=== PATIENT | female | born 1985 | race Caucasian/White ===

== ENCOUNTER 2018-05-18 10:14 | Outpatient (CLI) | payer BC ==
[2018-05-18 12:46] LABS: MICROSCOPIC INDICATED
[2018-05-18] MEDS ORDERED: CYCL25PO20 PO (13:11)
== END 2018-05-18 13:15 | disposition home or self-care (01) ==
LOC: LDOP 10:14
PROVIDERS: ATTEND Obstetrics & Gynecology
DX: O26.892 Other specified pregnancy related conditions, second trimester (principal); M54.42 Lumbago with sciatica, left side; Z3A.24 24 weeks gestation of pregnancy
CPT/HCPCS: 59025; 81001; 87086; 99201; G0463

== ENCOUNTER 2018-08-18 09:19 | Inpatient (IN) | payer BC ==
[~2018-08-18] VITALS: Ht 175.3 cm; Wt 172.0 kg
[~2018-08-18 09:19] MED LIST: CYCL25PO20 PO
[2018-08-18] MEDS ORDERED: MISOPROSTOL 25 MCG TABLET ONE ×3 (10:34→20:09)
[2018-08-18] MEDS ORDERED: LIDOCAINE 1%, 20ML ONE (10:34)
[2018-08-18] MEDS ORDERED: OXYTOCIN 30U/ 0.9% NaCL 500ML 500 ML ONE (10:34)
[2018-08-18] MEDS ORDERED: NEWBORN KIT ONE (10:34)
[2018-08-18] MEDS ORDERED: OXYTOCIN 30U/ 0.9% NaCL 500ML 500 ML IV ONE (10:50)
[2018-08-18] MEDS: D5%-LACTATED RINGERS 1,000 ML IV SCH ×2 (10:50→18:50)
[2018-08-18] MEDS ORDERED: OXYTOCIN 30U/ 0.9% NaCL 500ML 500 ML IV PRN (10:50)
[2018-08-18] MEDS: LACTATED RINGERS 1,000 ML IV SCH ×2 (10:50→18:50)
[2018-08-18] MEDS ORDERED: ONDANSETRON 2MG/ML, 2ML IVPush PRN (11:00)
[2018-08-18] MEDS ORDERED: FENTANYL PF 100 MCG/2ML IVPush PRN (11:00)
[2018-08-18] MEDS ORDERED: CALCIUM CARBONATE 500 MG TAB.CHEW PO PRN (11:00)
[2018-08-18] MEDS ORDERED: TERBUTALINE 1 MG/ML, 1ML IVPush PRN (11:00)
[2018-08-18] MEDS ORDERED: FENTANYL PF 100 MCG/2ML IV PRN (11:00)
[2018-08-18] MEDS ORDERED: MISOPROSTOL 25 MCG TABLET PO PRN ×2 (11:00→18:00)
[2018-08-18 11:18] LABS: BASOPHILS % (AUTO) 0 % (0-1); EOSINOPHILS # (AUTO) 0.04 x10^3/uL (0-0.4); EOSINOPHILS % (AUTO) 0 % (1-7); LYMPHOCYTES # (AUTO) 1.47 x10^3/uL (1-3.4); LYMPHOCYTES % (AUTO) 10 % (22-44); MD NO; MEAN CORPUSCULAR HEMOGLOBIN 28.6 pg (27.0-34.8); MEAN CORPUSCULAR VOLUME 86.5 fL (80-100); MEAN PLATELET VOLUME 8.6 fL (7.4-10.4); MONOCYTES # (AUTO) 0.71 x10^3/uL (0.2-0.8); MONOCYTES % (AUTO) 5 % (2-9); NEUTROPHILS # (AUTO) 12.17 x10^3/uL (1.8-6.8); NEUTROPHILS % (AUTO) 85 % (42-75); PLATELET COUNT 302 x10^3/uL (130-400); RED BLOOD COUNT 4.29 x10^6/uL (3.82-5.3); RED CELL DISTRIBUTION WIDTH 15.8 % (9.6-15.2)
[2018-08-18 19:20] VITALS: BP 139/80
[2018-08-19] MEDS ORDERED: OXYTOCIN 30U/ 0.9% NaCL 500ML 500 ML IV PRN (03:53)
[2018-08-19] MEDS ORDERED: FENTANYL/BUPIV./NS/PF 250 ML EPIDCONT SCH (03:54)
[2018-08-19] MEDS: LACTATED RINGERS 1,000 ML IV SCH ×3 (12:00→16:18)
[2018-08-19] MEDS ORDERED: AMPICILLIN 2 GM in SODIUM CHLORIDE 0.9% 100 ML IVPB STA (12:04)
[2018-08-19] MEDS ORDERED: FENTANYL PF 100 MCG/2ML ONE (12:19)
[2018-08-19] MEDS ORDERED: LIDOCAINE/PF 1.5%-EPI 1:200K, 30ML ONE (13:45)
[2018-08-19] MEDS ORDERED: BUPIVACAINE 0.25% ONE (13:45)
[2018-08-19] MEDS: AMPICILLIN 1 GM in SODIUM CHLORIDE 0.9% 100 ML IVPB SCH ×2 (16:24→19:49)
[2018-08-19] MEDS: D5%-LACTATED RINGERS 1,000 ML IV SCH (17:18)
[2018-08-19] MEDS ORDERED: LACTATED RINGERS 1,000 ML IV SCH (17:48)
[2018-08-19] MEDS ORDERED: FENTANYL PF 500 MCG, BUPIVACAINE/PF 0.5%, 30ML 62.5 ML in SODIUM CHLORIDE 0.9% 177.5 ML EPIDCONT SCH (17:48)
[2018-08-19] MEDS ORDERED: EPHEDRINE 50 MG/ML, 1ML IVPush PRN (18:00)
[2018-08-19] MEDS ORDERED: NALOXONE 0.4 MG/ML, 1ML IVPush PRN (18:00)
[2018-08-19] MEDS ORDERED: LACTATED RINGERS 1,000 ML IVBOLUS PRN (18:00)
[2018-08-19] MEDS ORDERED: OXYTOCIN 30U/ 0.9% NaCL 500ML 500 ML ONE (19:20)
[2018-08-19 19:33] VITALS: BP 136/76
[2018-08-19] MEDS ORDERED: PROPOFOL 10 MG/ML, 20ML ONE ×2 (22:08→22:09)
[2018-08-19] MEDS: OXYTOCIN 30U/ 0.9% NaCL 500ML 500 ML IV SCH (22:58)
[2018-08-19] MEDS ORDERED: ONDANSETRON 2MG/ML, 2ML IV PRN (23:00)
[2018-08-19] MEDS ORDERED: BISACODYL 10 MG SUPP PR PRN (23:00)
[2018-08-19] MEDS ORDERED: GLYCERIN ADULT SUPP PR PRN (23:00)
[2018-08-19] MEDS ORDERED: CEFAZOLIN 2,000 MG in SODIUM CHLORIDE 0.9% 50 ML IV SCH (23:00)
[2018-08-19] MEDS ORDERED: METOCLOPRAMIDE 5 MG/ML, 2ML IV PRN (23:00)
[2018-08-19] MEDS ORDERED: MISOPROSTOL 200 MCG TABLET PR ONE (23:30)
[2018-08-20] MEDS ORDERED: ACETAMINOPHEN 325 MG TABLET PO PRN (00:30)
[2018-08-20 01:00] VITALS: BP 123/82
[2018-08-20] MEDS ORDERED: OXYTOCIN 30U/ 0.9% NaCL 500ML 500 ML IV SCH (01:30)
[2018-08-20] MEDS ORDERED: METHYLERGONOVINE 0.2 MG/ML IM PRN (01:30)
[2018-08-20] MEDS ORDERED: OXYcodone/APAP 5/325MG TABLET PO PRN ×2 (01:30)
[2018-08-20] MEDS ORDERED: MISOPROSTOL 200 MCG TABLET PR PRN (01:30)
[2018-08-20] MEDS ORDERED: RHOGAM FROM BLOOD BANK 1 NOTE EA IM/IV ONE (01:30)
[2018-08-20] MEDS ORDERED: MEASLES,MUMPS&RUBELLA VACC/PF 0.5 ML SQ-VACC PRN (01:30)
[2018-08-20] MEDS ORDERED: DIPH,PERTUSS(ACELL),TET VAC/PF NC IM-VACC PRN (01:30)
[2018-08-20] MEDS ORDERED: CARBOPROST TROMETHAMINE 250 MCG/ML, 1ML IM PRN (01:30)
[2018-08-20] MEDS ORDERED: DOCUSATE 100 MG CAPSULE PO PRN (01:30)
[2018-08-20] MEDS: IBUPROFEN 600 MG TABLET PO PRN ×3 (03:01→21:51)
[2018-08-20 05:05] VITALS: BP 118/79
[2018-08-20 05:20] LABS: MEAN CORPUSCULAR HEMOGLOBIN 28.1 pg (27.0-34.8); MEAN CORPUSCULAR HGB CONC 32.9 g/dL (32.4-35.8); MEAN CORPUSCULAR VOLUME 85.4 fL (80-100); MEAN PLATELET VOLUME 8.4 fL (7.4-10.4); PLATELET COUNT 265 x10^3/uL (130-400); RED BLOOD COUNT 3.92 x10^6/uL (3.82-5.3); RED CELL DISTRIBUTION WIDTH 16.1 % (9.6-15.2)
[2018-08-20 05:44] LABS: BASOPHILS # (AUTO) 0.01 x10^3/uL (0-0.1); BASOPHILS % (AUTO) 0 % (0-1); EOSINOPHILS % (AUTO) 0 % (1-7); LYMPHOCYTES # (AUTO) 1.49 x10^3/uL (1-3.4); LYMPHOCYTES % (AUTO) 8 % (22-44); MD SCAN; MONOCYTES # (AUTO) 1.01 x10^3/uL (0.2-0.8); MONOCYTES % (AUTO) 6 % (2-9); NEUTROPHILS # (AUTO) 15.81 x10^3/uL (1.8-6.8); NEUTROPHILS % (AUTO) 86 % (42-75)
[2018-08-20 07:00] VITALS: BP 121/64
[2018-08-20] MEDS: PRENATAL VIT/IRON/FA 1 EACH TABLET PO SCH (08:56)
[2018-08-20] MEDS: OXYTOCIN 30U/ 0.9% NaCL 500ML 500 ML IV SCH ×2 (08:58→18:58)
[2018-08-20 12:00] VITALS: BP 108/75
[2018-08-20 15:33] VITALS: BP 124/82
[2018-08-20 20:02] VITALS: BP 111/72
[2018-08-21] MEDS: OXYTOCIN 30U/ 0.9% NaCL 500ML 500 ML IV SCH ×2 (04:58→14:58)
[2018-08-21 07:20] VITALS: BP 127/82
[2018-08-21] MEDS: PRENATAL VIT/IRON/FA 1 EACH TABLET PO SCH (09:05)
[2018-08-21] MEDS: IBUPROFEN 600 MG TABLET PO PRN ×2 (09:05→14:20)
[2018-08-21] MEDS ORDERED: IBUP-1222 PO (17:43)
== END 2018-08-21 18:00 | disposition home or self-care (01) | DRG 807 ==
LOC: LDOP 09:19 → LDIP 10:41 → 2NW 08-20 00:15
PROVIDERS: ADMIT Obstetrics & Gynecology; ATTEND Obstetrics & Gynecology
PROC: 10E0XZZ Delivery of Products of Conception, External Approach (ICD-10-PCS; principal; 2018-08-19)
PROC: 10D17Z9 Manual Extraction of Products of Conception, Retained, Via Natural or Artificial Opening (ICD-10-PCS; 2018-08-19)
PROC: 3E0P7VZ Introduction of Hormone into Female Reproductive, Via Natural or Artificial Opening (ICD-10-PCS; 2018-08-19)
PROC: 3E0R3BZ Introduction of Anesthetic Agent into Spinal Canal, Percutaneous Approach (ICD-10-PCS; 2018-08-19)
PROC: 00HU33Z Insertion of Infusion Device into Spinal Canal, Percutaneous Approach (ICD-10-PCS; 2018-08-19)
DX: O13.4 Gestational [pregnancy-induced] hypertension without significant proteinuria, complicating childbirth (principal); Z37.0 Single live birth; O66.0 Obstructed labor due to shoulder dystocia; O99.214 Obesity complicating childbirth; E66.01 Morbid (severe) obesity due to excess calories; O73.1 Retained portions of placenta and membranes, without hemorrhage; O42.02 Full-term premature rupture of membranes, onset of labor within 24 hours of rupture; Z3A.37 37 weeks gestation of pregnancy
CPT/HCPCS: 36415; J3490; J7121; S0020; 82803; 84112; 85025; 86850; 86900; 89060; G0378; J0290; J0690; J2704; J3010; J2590; J7050; J7120; Q0114